=== PATIENT | male | born 1995 | race Two or more races ===

== ENCOUNTER 2016-10-27 23:03 | Emergency (ER) | payer OTHER ==
[~2016-10-27] VITALS: Ht 167.6 cm; Wt 78.0 kg
[2016-10-27 23:10] VITALS: BP 149/97
[2016-10-27] MEDS ORDERED: HYDROCODONE/APAP 5/325MG TABLET. PO ONE (23:55)
[2016-10-27] MEDS ORDERED: DIPHTH,PERTUSS(ACELL),TET TOX 0.5 ML DISP.SYRIN. VAX IM ONE (23:55)
[2016-10-28] MEDS ORDERED: HYDR-2666 PO (00:41)
[2016-10-28] MEDS ORDERED: BACI28.43 TP (00:41)
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
== END 2016-10-28 01:11 | disposition home or self-care (01) ==
LOC: ER 23:03
DX: T25.221A Burn of second degree of right foot, initial encounter (principal); X08.8XXA Exposure to other specified smoke, fire and flames, initial encounter; Y93.89 Activity, other specified; Y92.89 Other specified places as the place of occurrence of the external cause; Y99.8 Other external cause status
CPT/HCPCS: 90471; 90715; 99283-25